=== PATIENT | male | born 1975 ===

== ENCOUNTER 2017-01-26 05:37 | Emergency (ER) | payer OTHER ==
[2017-01-26 05:53] VITALS: BMI 34.2
[2017-01-26] MEDS ORDERED: Sodium Chloride 0.9% 2,000 ML IV STA (06:01)
[2017-01-26] MEDS ORDERED: TDAP Vaccine 0.5 mL Syr IM ONE (06:01)
[2017-01-26] MEDS ORDERED: ceFAZolin 1 gm in NS 1 GM/100 ML BAG IVPB STA (06:09)
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
[2017-01-26 08:26] VITALS: RESP 18
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
[2017-01-26 09:52] VITALS: BP 126/80; PULSE 107; TEMP 98.9; O2SAT 96
== END 2017-01-26 09:55 | disposition designated cancer center or children's hospital (05) ==
LOC: ED 05:37
DX: S02.672A Fracture of alveolus of left mandible, initial encounter for closed fracture (principal); S01.81XA Laceration without foreign body of other part of head, initial encounter; Y08.89XA Assault by other specified means, initial encounter; Y93.89 Activity, other specified; Y92.89 Other specified places as the place of occurrence of the external cause; Z23 Encounter for immunization
CPT/HCPCS: 12054; 70450; 70486; 72125; 90471; 90715; 96374; 99283; J0690; J2270; J7040